=== PATIENT | male | born 1990 | race American Indian/Alaskan Native ===

== ENCOUNTER 2018-01-10 17:38 | Emergency (ER) | payer OTHER ==
[2018-01-10 17:48] VITALS: BP 151/90
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
== END 2018-01-10 22:35 | disposition home or self-care (01) ==
LOC: ED 17:38
DX: M54.9 Dorsalgia, unspecified (principal)
CPT/HCPCS: 99282